=== PATIENT | female | born 2005 | race Caucasian/White ===

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

== ENCOUNTER 2023-07-22 14:26 | Emergency (ER) | payer BC, MEDICAID, SELFPAY ==
[2023-07-22] VITALS (7 sets, daily range): BP systolic 110–153; BP diastolic 80–98; PULSE 125–140; RESP 11–19; O2SAT 87–98; BMI 40.2
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
[2023-07-22] MEDS: HYDROmorphone 1 mg/mL INJ 1 mL IVP (15:01)
--- NOTE | 2023-07-22 15:03 | PC.NURSE ---
pt oxygen saturation decreased to 87% on room air after Dilaudid administration. this nurse applied 2L NC. pt oxygen saturation increased to 97% on 2L NC.
[2023-07-22 15:21] LABS: HCG, Serum Qual Negative (Negative)
[2023-07-22 15:22] LABS: Basophils # 0.1 10^3/uL (0.0-0.1); Basophils % 0.3 %; Hematocrit 41.7 % (36-47); Lymphocytes # 1.7 10^3/uL (1.5-6.5); Lymphocytes % 5.9 %; Mean Corpuscular HGB Conc 31.2 g/dL (30-55); Mean Corpuscular Hemoglobin 25.8 pg (27-33); Mean Corpuscular Volume 82.7 fl (85-98); Mean Platelet Volume 10.7 fL (7.4-10.4); Monocytes # 0.9 10^3/uL (0.2-0.9); Monocytes % 3.1 %; Neutrophils # 25.33 10^3/uL (1.8-8.0); Nucleated Red Blood Cells % 0 %; Platelet Count 377 10^3/cmm (157-399); Red Blood Count 5.04 10^6/uL (3.85-5.65); Red Cell Distribution Width 14.5 % (12.1-15.1); White Blood Count 28.46 10^3/uL (4.5-13.0)
[2023-07-22 15:26] LABS: Alanine Aminotransferase 18 U/L (0-33); Albumin Level 4.1 g/dL (3.5-5.2); Alkaline Phosphatase 86 U/L (35-105); Anion Gap 15.5 (5-19); Aspartate Amino Transferase 28 U/L (0-32); Blood Urea Nitrogen 14 mg/dL (6-20); Calcium 9.1 mg/dL (8.5-10.5); Carbon Dioxide 23 mmol/L (22-29); Chloride 102 mmol/L (98-107); Globulin 3.7 g/dL (1.3-4.6); Glomerular Filtration Rate 127.5 mL/min (90-130); Glucose 151 mg/dL (65-115); Osmolality Calculated 287 mOsm/kg (285-295); Potassium 3.5 mmol/L (3.5-5.1); Sodium 137 mmol/L (136-145); Total Bilirubin 0.3 mg/dL (0.15-1.2); Total Protein 7.8 g/dL (6.6-8.7)
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
[2023-07-22] MEDS: iohexol 350 mg/mL 500 mL Btl (per mL) IV (15:46)
[2023-07-22] MEDS: morphine 4 mg/mL SDV 1 mL IVP (17:03)
--- NOTE | 2023-07-22 17:15 | PC.NURSE ---
report given to Kayleigh Bai at [facility] in Communications at 1711, Kayleigh had no further questions.
--- NOTE | 2023-07-22 17:49 | PC.NURSE ---
report given to [facility] 1740. pt left facility at approx 1800.
== END 2023-07-22 18:05 ==
PROVIDERS: Emergency Provider Physician Assistant
DX: S22.22XA Fracture of body of sternum, initial encounter for closed fracture (principal); S82.51XA Displaced fracture of medial malleolus of right tibia, initial encounter for closed fracture; S52.251A Displaced comminuted fracture of shaft of ulna, right arm, initial encounter for closed fracture; S52.351A Displaced comminuted fracture of shaft of radius, right arm, initial encounter for closed fracture; V49.50XA Passenger injured in collision with unspecified motor vehicles in traffic accident, initial encounter
CPT/HCPCS: 29515; 70450; 71045; 71260; 72125; 73090; 73610; 73630; 74177; 80053; 84703; 85025; 96374; 96375; 99285; J1170; J2270; Q9967

== ENCOUNTER 2024-10-24 11:09 | Emergency (ER) | payer BC, SELFPAY ==
--- NOTE | 2024-10-24 11:11 | US_ITS ---
WS: [id number] EARLY OBSTETRICAL ULTRASOUND (<14 WEEKS). HISTORY: threatened miscarriage COMPARISON: None available. Single intrauterine gestational sac is identified. Cardiac activity at 164 BPM. [place]-rump length measures 0.9 cm which corresponds to a gestation of 6w6d. Normal-appearing yolk sac and amnion demonstrated. Very small subchorionic hemorrhage. Hemorrhages along the anterior inferior gestational sac. No free fluid. Normal size ovaries with no mass. US/US OB <=14 wk fetus w transvag IMPRESSION: 1. Single intrauterine gestation of 6w6d with an EDC of 06/13/2025. 2. Normal heart rate of 164 bpm.
[2024-10-24 11:33] VITALS: BP 110/63; PULSE 80; RESP 17; TEMP 36.8; O2SAT 99; BMI 39.1
--- NOTE | 2024-10-24 12:31 | ED_ITS ---
HPI - Female Genitourinary 2 General: Chief complaint: Urogenital-Female Stated complaint: 8 weeks preg, vaginal bleeding, cramps Time Seen by Provider: 10/24/24 12:11 Source: patient Mode of arrival: ambulatory Limitations: no limitations History of Present Illness: 19-year-old female states she is roughly 6 to 8 weeks states has been having some vaginal bleeding has been light and cramping over the last 2 weeks. She denies any large amounts of bleeding denies any clots states her cramping pain is mild in nature she denies any dysuria denies any fevers denies any vomiting Associated symptoms: Reports abdominal pain; Deny headache(s) or nausea Related Data Home Medications ?Medication ?Instructions ?Recorded ?Confirmed No Known Home Medications 10/24/2404/11 Allergies Allergy/AdvReac Type Severity Reaction Status Date / Time No Known Allergies Allergy Verified 10/24/24 11:37 Review of Systems 2 Const: Denies: fever(s), chills, body aches or change in appetite ENMT: Denies: throat pain or dental pain Card: Denies: chest pain Resp: Denies: dyspnea GI: Reports: abdominal pain; Denies: nausea, vomiting or diarrhea : Reports: vaginal bleeding; Denies: dysuria Musc: Denies: neck pain or back pain Skin/Breast: Denies: rash Neuro: Denies: headache(s) PFSH ED 2 PFSH: Medical History (Updated 10/24/24 @ 14:39 by Julian Fang MD) No pertinent past medical history Social History Smoking and tobacco/nicotine status: never used tobacco/nicotine Alcohol intake: never Substance/Drug Use: never Physical Exam 2 Const: COMMON NORMALS: no acute distress, patient oriented x3 and healthy appearing HENMT: COMMON NORMALS: normocephalic and atraumatic HEAD & SCALP: n ormocephalic and atraumatic Eye: COMMON NORMALS: conjunctivae normal CONJUNCTIVA: Yes conjunctivae normal Neck/C-Spine: COMMON NORMALS: full ROM and supple Chest: COMMONS NORMALS: normal inspection of the chest Resp: COMMON NORMALS: normal respiratory effort Cardio: COMMON NORMALS: regular rate, regular rhythm and No murmurs present (Cardio) RATE: regular rate RHYTHM: regular rhythm GI: COMMON NORMALS: Normal to inspection, nondistended, normoactive bowel sounds present, Soft to palpation, non-tender and no masses PALPATION: Yes Soft to palpation Extremity: COMMON NORMALS: normal to inspection and full ROM Neuro: COMMON NORMALS: patient oriented x3, moves all extremities and no focal motor deficits Psych: COMMON NORMALS: mental status grossly normal, Normal thought process present and cooperative THOUGHT PROCESS: Normal thought process present Skin: COMMON NORMALS: no rashes or lesions noted and no wounds GENERAL SKIN EXAM: no rashes or lesions noted Course 2 Vital Signs: Vital signs: Vital Signs Temperature 98.3 F 10/24/24 11:33 Pulse Rate 80 10/24/24 11:33 Respiratory Rate 17 10/24/24 11:33 Blood Pressure 110/63 10/24/24 11:33 Pulse Oximetry 99 10/24/24 11:33 Oxygen Delivery Me thod Room Air 10/24/24 11:33 MDM - Female Medical Decision Making Patient presents here with threatened miscarriage ultrasound showed no IUP blood works normal she is well-appearing here stable for discharge follow-up with her OB return if worsening. Medical Records I reviewed the patient's medical records. Lab Data I reviewed the patient's lab results. 10/24/24 12:58 Radiology Impressions Obstetrics Ultrasound 10/24/24 11:11 IMPRESSION: 1. Single intrauterine gestation of 6w6d with an EDC of 06/13/[birth year]25. 2. Normal heart rate of 164 bpm. Laboratory Results WBC 10.34 10^3/uL (3.29-11.43) 10/24/24 12:58 RBC 4.26 10^6/uL (3.85-5.65) 10/24/24 12:58 Hgb 11.80 g/dL (11.27-16.99) 10/24/24 12:58 Hct 36.0 % (36-47) 10/24/24 12:58 MCV 84.5 fl (85-98) L 10/24/24 12:58 MCH 27.7 pg (27-33) 10/24/24 12:58 MCHC 32.8 g/dL (30-55) 10/24/24 12:58 RDW 15.5 % (12.1-15.1) H 10/24/24 12:58 Plt Count 278 10^3/cmm (157-399) 10/24/24 12:58 MPV 10.1 fL (7.4-10.4) 10/24/24 12:58 Neut % (Auto) 68.1 % 10/24/24 12:58 Lymph % (Auto) 25.9 % 10/24/24 12:58 Green % (Auto) 4.0 % 10/24/24 12:58 Eos % (Auto) 1.3 % 10/24/24 12:58 Baso % (Auto) 0.4 % 10/24/24 12:58 Neut # (Auto) 7.05 10^3/uL (1.8-7.7) 10/24/24 12:58 Lymph # (Auto) 2.7 10^3/uL (0.8-4.8) 10/24/24 12:58 Green # (Auto) 0.4 10^3/uL (0.2-0.9) 10/24/24 12:58 Eos # (Auto) 0.1 10^3/uL (0.0-0.8) 10/24/24 12:58 Baso # (Auto) 0.0 10^3/uL (0.0-0.1) 10/24/24 12:58 Nucleated RBC % (auto) 0 % 10/24/24 12:58 Nucleated RBCs # 0.0 /100WBC 10/24/24 12:58 Ser , Semi-Qnt 02772.00 mIU/mL 10/24/24 12:58 Blood Type O Positive 10/24/24 12:58 Rho(D) Type Rh positive 10/24/24 12:58 Antibody Screen Negative 10/24/24 12:58 All radiology interpretation(s) finalized by discharge Discharge Plan Discharge Patient Disposition: Home Clinical Impression: Threatened miscarriage Condition: Stable Prescriptions: No Action No Known Home Medications Discharge Orders: Discharge ED (Routine); Ordered 10/24/24 Ordered By: Julian Fang Referrals: Silvia Infante MD [Primary Care Provider] - Discharge Diet: Advance as tolerated Discharge Activity: Resume usual activity Patient Instructions: Threatened Miscarriage (ED) Print Language: Marshallese Coding Level of Care Code ED [employer] for Rocío Fernando
[2024-10-24 13:09] LABS: Basophils % 0.4 %; Eosinophils # 0.1 10^3/uL (0.0-0.8); Eosinophils % 1.3 %; Lymphocytes # 2.7 10^3/uL (0.8-4.8); Lymphocytes % 25.9 %; Mean Corpuscular HGB Conc 32.8 g/dL (30-55); Mean Corpuscular Hemoglobin 27.7 pg (27-33); Mean Corpuscular Volume 84.5 fl (85-98); Mean Platelet Volume 10.1 fL (7.4-10.4); Monocytes # 0.4 10^3/uL (0.2-0.9); Neutrophils # 7.05 10^3/uL (1.8-7.7); Neutrophils % 68.1 %; Nucleated Red Blood Cells % 0 %; Platelet Count 278 10^3/cmm (157-399); Red Blood Count 4.26 10^6/uL (3.85-5.65); Red Cell Distribution Width 15.5 % (12.1-15.1); White Blood Count 10.34 10^3/uL (3.29-11.43)
== END 2024-10-24 15:05 | disposition home or self-care (01) ==
PROVIDERS: Emergency Provider Emergency Medicine; PCP Family Medicine
DX: O20.0 Threatened abortion (principal); Z3A.01 Less than 8 weeks gestation of pregnancy
CPT/HCPCS: 36415; 76801; 76817; 84702; 85025; 86850; 86900; 99284

== ENCOUNTER → 2024-11-15 14:30 | Outpatient (BNVA) | payer BC, SELFPAY | PROVIDERS: PCP Family Medicine; Visit Provider Nurse Practitioner Women's Health | DX: N91.2 Amenorrhea, unspecified (principal); N92.6 Irregular menstruation, unspecified; F41.9 Anxiety disorder, unspecified; F32.A Depression, unspecified | CPT/HCPCS: 81025 ==

== ENCOUNTER → 2024-11-27 13:57 | Outpatient (BNVA) | payer BC, SELFPAY | PROVIDERS: PCP Family Medicine; Visit Provider Nurse Practitioner Women's Health | DX: Z34.90 Encounter for supervision of normal pregnancy, unspecified, unspecified trimester (principal) | CPT/HCPCS: 80307; 84315; 85025; 86592; 86762; 86803; 86850; 86900; 87086; 87340; 87491; 87591; 87661; 87806; 88175 ==